=== PATIENT | female | born 1965 | race Caucasian/White ===

== ENCOUNTER 2019-04-03 14:00 | Emergency (ER) | payer MEDICARE, OTHER ==
[~2019-04-03] VITALS: Ht 162.6 cm; Wt 127.0 kg
[2019-04-03] MEDS ORDERED: Novolog100 UNIT/1 SC (15:33)
[2019-04-03] MEDS ORDERED: GABA300 PO (15:33)
[2019-04-03] MEDS ORDERED: Amitiza8 MCG PO (15:34)
[2019-04-03] MEDS ORDERED: ELIQUIS5 M2 PO (15:34)
[2019-04-03] MEDS ORDERED: EPINEPHRIN0.3 MG/0.3 IM (15:36)
[2019-04-03] MEDS ORDERED: Nitrostat0.4 MG SL (15:37)
[2019-04-03] MEDS ORDERED: OXYC5 PO (15:37)
[2019-04-03] MEDS ORDERED: Zanaflex4 MG PO (15:38)
[2019-04-03] MEDS ORDERED: RIZATRIPTAN10 M2 PO (15:40)
[2019-04-03] MEDS ORDERED: Clonazepam0.5 M1 PO (15:40)
[2019-04-03] MEDS ORDERED: CEVIMELINE HCL30 MG PO (15:40)
[2019-04-03] MEDS ORDERED: NARA2.5 (15:40)
[2019-04-03] MEDS ORDERED: ONDA8 PO (15:40)
[2019-04-03] MEDS ORDERED: LOPE2C PO (15:41)
[2019-04-03] MEDS ORDERED: EUTHYROX150 MCG PO (15:42)
[2019-04-03] MEDS ORDERED: Betamethasone V60 ML (15:42)
[2019-04-03] MEDS ORDERED: Cyproheptadine H4 MG PO (15:43)
[2019-04-03] MEDS ORDERED: Calcitriol1 MCG/ML PO (15:44)
[2019-04-03] MEDS ORDERED: LINE600 PO (15:44)
[2019-04-03] MEDS ORDERED: Prevacid Soluta30 MG JT (15:44)
[2019-04-03] MEDS ORDERED: ATORVASTATIN CA40 MG PO (15:45)
[2019-04-03] MEDS ORDERED: Metformin HCl500 MG PO (15:46)
== END 2019-04-03 15:30 | disposition home or self-care (01) ==
LOC: ER 14:00
DX: S50.12XA Contusion of left forearm, initial encounter (principal); S80.211A Abrasion, right knee, initial encounter; E11.9 Type 2 diabetes mellitus without complications; K21.9 Gastro-esophageal reflux disease without esophagitis; W01.0XXA Fall on same level from slipping, tripping and stumbling without subsequent striking against object, initial encounter
CPT/HCPCS: 73090; 73564; 99283-25

== ENCOUNTER 2019-05-22 23:43 | Observation (INO) | payer MEDICARE, OTHER ==
[~2019-05-22] VITALS: Ht 162.6 cm; Wt 130.7 kg
[~2019-05-22 23:43] MED LIST: ATORVASTATIN CA40 MG PO; Amitiza8 MCG PO; Betamethasone V60 ML; CEVIMELINE HCL30 MG PO; Calcitriol1 MCG/ML PO; Clonazepam0.5 M1 PO; Cyproheptadine H4 MG PO; ELIQUIS5 M2 PO; EPINEPHRIN0.3 MG/0.3 IM; EUTHYROX150 MCG PO; GABA300 PO; LINE600 PO; LOPE2C PO; Metformin HCl500 MG PO; NARA2.5; Nitrostat0.4 MG SL; Novolog100 UNIT/1 SC; ONDA8 PO; OXYC5 PO; Prevacid Soluta30 MG JT; RIZATRIPTAN10 M2 PO; Zanaflex4 MG PO
[2019-05-23 00:07] LABS: BASOPHILS ABSOLUTE AUTO 0.02 K/mm3 (0.00-0.23); BASOPHILS PERCENT AUTO 0 % (0-2); EOSINOPHILS ABSOLUTE AUTO 0.15 K/mm3 (0.00-0.68); EOSINOPHILS PERCENT AUTO 3 % (0-6); Hematocrit 35.2 % (33.0-51.0); Hemoglobin 11.4 g/dL (11.5-16.0); IMMATURE GRAN ABSOLUTE AUTO 0.01 K/mm3 (0.00-0.10); IMMATURE GRAN PERCENT AUTO 0 % (0-1); LYMPHOCYTES ABSOLUTE AUTO 1.94 K/mm3 (0.84-5.20); LYMPHOCYTES PERCENT AUTO 33 % (21-46); MONOCYTES ABSOLUTE AUTO 0.54 K/mm3 (0.16-1.47); MONOCYTES PERCENT AUTO 9 % (4-13); Mean Corpuscular HGB 29.5 pg (26.0-34.0); Mean Corpuscular HGB Conc 32.4 g/dL (31.5-36.5); Mean Corpuscular Volume 91 fL (80-100); Mean Platelet Volume 9.8 fL (9.1-12.4); NEUTROPHILS ABSOLUTE AUTO 3.19 K/mm3 (1.96-9.15); NEUTROPHILS PERCENT AUTO 55 % (41-73); Platelet Count 172 K/mm3 (150-400); RDW Coefficient Variation 13.8 % (11.7-14.2); RDW Standard Deviation 46.1 fL (35.1-46.3); Red Blood Cell Count 3.87 M/mm3 (3.80-5.20); White Blood Cell Count 5.85 K/mm3 (4.00-11.30)
[2019-05-23 00:10] LABS: Calcium, Ionized (POC) 1.15 mmol/L (1.10-1.46); Chloride (POC) 103 mmol/L (98-108); Creatinine (POC) 1.3 mg/dL (0.6-1.0); Glucose (ISTAT POC) 174 mg/dL (70-99); Hemoglobin (POC) 11.2 g/dL (12.0-16.0); Potassium (POC) 3.7 mmol/L (3.5-5.5); Sodium (POC) 141 mmol/L (135-148); Total CO2 (POC) 25 mmol/L (21-32)
[2019-05-23 00:28] LABS: Alanine Aminotransfer (ALT/SGP 14 U/L (12-78); Albumin/Globulin Ratio 0.9 (0.8-1.8); Alk Phos 84 U/L (50-136); Anion Gap 6 mmol/L (6-16); Aspartate Aminotrans (AST/SGOT 10 U/L (12-37); Bilirubin, Total 0.3 mg/dL (0.1-1.0); Blood Urea Nitrogen 16 mg/dL (8-24); CO2, Blood 26 mmol/L (21-32); Chloride, Blood 109 mmol/L (98-108); Creatinine, Blood 1.14 mg/dL (0.40-1.00); Globulin, Blood 3.5 g/dL (2.2-4.0); Glomerular Filtration Rate 53 (60-); Glucose, Blood 173 mg/dL (70-99); Potassium, Blood 3.7 mmol/L (3.5-5.5); Sodium, Blood 141 mmol/L (136-145); Total Protein, Blood 6.5 g/dL (6.4-8.2); Troponin I <0.015 ng/mL (0.000-0.040)
[2019-05-23 01:03] LABS: Base Excess Venous 0.8 mmol/L; Bicarbonate Venous 24.7 mmol/L (24.0-30.0); PCO2 Venous 47.4 mmHg (38-42); PO2 Venous 163 mmHg (38-42); pH Blood Venous 7.35 (7.34-7.37)
[2019-05-23 02:31] LABS: Source, Urine Clean Catch
[2019-05-23 02:34] LABS: Bilirubin, Urine Neg (Neg); Blood, Urine Neg (Neg); Glucose Qualitative, Urine Neg (Neg); Ketones, Urine Neg (Neg); Leukocyte Esterase, Urine Neg (Neg); Nitrite, Urine Neg (Neg); Protein, Urine Neg (Neg); Specific Gravity, Urine 1.015 (1.003-1.022); Urobilinogen, Urine 1+ (Normal)
[2019-05-23 02:36] LABS: Appearance, Urine Clear (Clear); Color, Urine Yellow (P-Yellow)
[2019-05-23 02:45] LABS: U Amphetamine Screen Not Detected; U Barbituate Screen Not Detected; U Benzodiazapine Screen Not Detected; U Buprenorphine Screen Not Detected; U Cannabinoids Screen Not Detected; U Cocaine Screen Not Detected; U Methadone Screen Not Detected; U Methamphetamine Screen Not Detected; U Opiates Screen Not Detected; U Oxycodone Screen Not Detected; U Phencyclidine Screen Not Detected; U Propoxyphene Screen Not Detected
--- NOTE | 2019-05-23 02:45 | NUR ---
PT ARRIVED TO ICU 5 FROM ER PCU ADMIT. ABLE TO SCOOT SELF TO RANI. A/O X4. SPEECH IS SLIGHTLY SLURRED AND LE ARE A LITTLE WEEK BUT FAMILY STATES SHE IS AT BASELINE. PT IS VERY ANXIOUS AND AGITATED. PT IS NOT RECEPTIVE TO ANY EDUCATION AND IS VERY DEFENSIVE. WANTS TO GO HOME AND TALKS OVER TOP OF RN AND FAMILY AT BEDSIDE. PT STATES "IF I DON'T GET A GENERAL DIET I WILL WALK OUT OF HERE". PT REFUSES TO BE ON ADA DIET DESPITE BEING A DIABETIC. OFFERING REASSURANCE TO PT TO TRY TO CALM HER DOWN. HAS MONTES TO LCW THAT IS HEP LOCKED. PT IS COMPLAINING ABOUT IV IN HER HAND AND FOOT. WILL GET ORDERS TO ACCESS MONTES.
[2019-05-23] MEDS ORDERED: Dyazide 37.5-21 EACH PO (03:41)
[2019-05-23] MEDS ORDERED: TIZA4 PO (03:52)
--- NOTE | 2019-05-23 07:15 | NUR ---
START OF SHIFT NOTE: RECEIVED REPORT FROM CAROL MCGRATH, ASSUMED CARE, PATIENT IS IN ROOM ICU 5, SCREAMING AND YELLING AT STAFF THAT SHE "HAS NOT SEEN A DOCTOR, HAS NOT GOTTEN ANY MEDICATIONS, AND WANTS TO LEAVE AMA", UP TO BSC WITH SBA, DOING WELL, ALERT AND ORIENTED, STEADY ON HER FEET, GETTING DRESSED, REMOVED ALL OF HER LEADS AND WANTED TO BE DISCONNECTED FROM IV FLUIDS. AT [address] ESCOBEDO AND NOTIFIED HER OF PATIENT'S SITUATION AND CONDITION, DR. ESCOBEDO OK WITH PATIENT LEAVING AMA LONG SHE SIGNS THE FORM, OK TO ORDER HEPARIN TO HEPARINIZE MONTES. PATIENT'S IVF STOPPED AND HEPARIN INFUSED, PATIENT TOOK BLOOD SUGAR WITH HER OWN MACHINE, IT SHOWED 87, THEN PATIENT COMPLAINED THAT SHE HAS NOT GOTTEN ANY OF HER MEDICATIONS, SHE WAS TOLD THAT I COULD ONLY GIVE HER WHAT WAS ORDERED, PATIENT AGREED FOR NOW, EATING BREAKFAST AT THIS TIME, CALL LIGHT IN REACH, WILL CONTINUE TO MONITOR.
--- NOTE | 2019-05-23 08:00 | NUR ---
PATIENT REFUSED TO PUT BP CUFF AND LEADS BACK ON, DR. ESCOBEDO AWARE.
--- NOTE | 2019-05-23 08:33 | NUR ---
PATIENT'S NIECE, JAKE, CALLED AND INQUIRED ABOUT PATIENT'S STATUS, JAKE STATED THAT THE "PATIENT CALLED HER AND WANTED TO BE PICKED UP, SINCE SHE DOES NOT HAVE A CAR, BUT FAMILY THOUGHT IT WOULD BE BETTER IF THE DOCTOR SAW HER FIRST", THIS RN PROVIDED UPDATE ON PATIENT'S CONDITION, AND THAT SHE WAS FINE TO LEAVE IF SHE SO DESIRED, FAMILY WILL CALL BACK, UNLESS PATIENT CALLS FIRST AND ASKS TO BE PICKED UP.
--- NOTE | 2019-05-23 09:11 | NUR ---
PATIENT WAS AGREEABLE ON TAKING MORNING MEDICATION, NO PROBLEM SWALLOWING, INQUIRED AGAIN ABOUT WHEN DOCTOR WILL MAKE ROUNDS, PATIENT WAS ASKED IF THERE WAS ANYTHING ELSE SHE NEEDED, PATIENT STATED "WELL, I WANTED TO LEAVE BECAUSE I DID NOT GET ANY MEDICATION THIS MORNING OR LAST NIGHT, THEY DID NOT WANT TO GIVE IT TO ME, THAT'S WHY I WAS MAD", AGREED TO WAIT UNTIL DOCTOR WILL MAKE ROUNDS.
--- NOTE | 2019-05-23 09:47 | NUR ---
FAMILY MEMBER AT BEDSIDE, POSSIBLY PATIENT'S RIDE HOME, CALL LIGHT IN REACH, WILL CONTINUE TO MONITOR.
--- NOTE | 2019-05-23 10:30 | NUR ---
DR. ESCOBEDO IN TO SEE PATIENT, NO NEW ORDERS RECEIVED, DR. ESCOBEDO WILL WRITE DISCHARGE ORDERS FOR PATIENT TO GO HOME.
--- NOTE | 2019-05-23 13:15 | NUR ---
DISCHARGE PAPERWORK READY, WAITING FOR NILESH JOSEPH TO COME BACK AND GIVE PATIENT RIDE HOME.
--- NOTE | 2019-05-23 14:00 | NUR ---
PATIENT DISCHARGED TO HOME, DISCHARGE DOCUMENTATION VERBAL AND WRITTEN PROVIDED AND EXPLAINED, PATIENT VERBALIZED UNDERSTANDING AFTER READING DOCUMENTATION THOROUGHLY, ALL MEDICATIONS RETURNED TO PATIENT, ALL PERSONAL BELONGINGS GIVEN TO PATIENT'S SISTER, PATIENT LEFT HOSPITAL VIA WHEELCHAIR, ACCOMPNAIED TO ER ENTRANCE BY THIS RN, WHERE SISTER WAS WAITING WITH CAR TO PROVIDE RIDE HOME.
== END 2019-05-23 14:00 | disposition home or self-care (01) ==
LOC: ER 23:43 → ICUE 23:44
PROVIDERS: Emergency Medicine; ADMIT Internal Medicine
DX: T42.8X1A Poisoning by antiparkinsonism drugs and other central muscle-tone depressants, accidental (unintentional), initial encounter (principal); T42.4X1A Poisoning by benzodiazepines, accidental (unintentional), initial encounter; E86.0 Dehydration; R21 Rash and other nonspecific skin eruption; I48.91 Unspecified atrial fibrillation; E11.9 Type 2 diabetes mellitus without complications; K21.9 Gastro-esophageal reflux disease without esophagitis; E03.9 Hypothyroidism, unspecified; F41.9 Anxiety disorder, unspecified; E78.5 Hyperlipidemia, unspecified; D84.9 Immunodeficiency, unspecified; G62.9 Polyneuropathy, unspecified; M79.7 Fibromyalgia; R25.2 Cramp and spasm; E66.01 Morbid (severe) obesity due to excess calories; Z68.42 Body mass index [BMI] 45.0-49.9, adult; Z86.2 Personal history of diseases of the blood and blood-forming organs and certain disorders involving the immune mechanism; Z79.02 Long term (current) use of antithrombotics/antiplatelets; Z79.84 Long term (current) use of oral hypoglycemic drugs; Z79.899 Other long term (current) drug therapy; Z88.5 Allergy status to narcotic agent; Z91.048 Other nonmedicinal substance allergy status; Z88.8 Allergy status to other drugs, medicaments and biological substances; Z88.1 Allergy status to other antibiotic agents
CPT/HCPCS: 36415; 70450; 71045; 80047; 80053; 81003; 82803; 84484; 85014; 85025; 93005; 93010; 96360; 96361; 99285-25; G0378; J1642; J7030